=== PATIENT | male | born 1970 ===

== ENCOUNTER → 2021-01-10 02:53 | Outpatient (CLI) | payer BC, SELFPAY ==
[2021-01-10 18:23] LABS: SARS-CoV-2 RNA PCR Negative
== END ==
PROVIDERS: PCP Nurse Practitioner Gerontology; Visit Provider Family Medicine
DX: R68.89 Other general symptoms and signs (principal); Z20.822 Contact with and (suspected) exposure to COVID-19
CPT/HCPCS: C9803; U0003; U0005

== ENCOUNTER 2021-01-12 09:08 | Outpatient (CLI) | payer BC, SELFPAY ==
--- NOTE | 2021-02-02 20:16 | WPDSLEEPSTUD ---
Sleep Study Date of Study: 01/12/21 Ordering Provider: Kaye Frausto, JULISSA Interpreting Physician: Shagufta Lacey MD Sleep Study Type: Split Polysomnogram Height: 1.78 m Weight: 147.418 kg Body Mass Index: 46.6 Neck Circumference (inches): 21 Distant: 3 Reason for Sleep Study Witnessed apnea, snoring, restless sleep Sleep History Mayur Lacey is a 50 year old man with a history of snoring and restless sleep. This has been going on for several years. Many members of his family have obstructive sleep apnea. He has tried sleep medications to help him have better sleep. He had a diagnosis of obstructive sleep apnea in the , used CPAP briefly but was unable to tolerate, had his tonsils removed with improvement in symptoms however he has had 100 lb weight gain over the last few years and this has made his apnea worse. He frequently awakens from sleep feeling short of breath. He occasionally awakens at night with heartburn, belching or coughing. His snoring is frequently loud enough that others complain about it. He constantly has trouble sleeping with a cold. He frequently wakes up gasping for breath at night. He constantly has breathing problems at night observed by others. He frequently sweats excessively at night and notices his heart pounding or beating irregularly at night. He does not fall asleep during the day, does not fall asleep involuntarily or while driving. He does not have loss of muscle tone with strong emotion. He occasionally has daytime difficulties due to excessive sleepiness. He frequently feels paralyzed on waking or falling asleep. He rarely has vivid dreamlike scenes on waking or falling asleep. He rarely feels afraid to go to sleep. He occasionally has nightmares. He does not remember his dreams. He constantly has racing thoughts. He occasionally feels sad or depressed. He frequently has anxiety. He frequently has muscular tension. He occasionally notices parts of his body jerking. He constantly kicks at night. He constantly has crawling and aching feelings in his legs as well as leg pain during the night. He occasionally has jaw pain. He frequently grinds his teeth during sleep. He constantly is bothered by pain during the day. He frequently is awakened by pain during the night. He constantly wakes up feeling stiff in the morning with sore achy muscles and pain in the neck and spine. He has dizziness, fatigue, memory problems, concentration difficulties, and he takes antacids regularly. He has gained 100 lb over the last 52 years since his abdominal surgery and now is working with a staff trainer. His normal bedtime is 2:00 a.m., falls asleep 1 hour after taking his medications. He wakes up 10 times during the night to urinate, drink water, below is nose and try to become comfortable and return to sleep which takes about 15 minutes. He estimates getting 3-5 hours of sleep normally. He does not take naps in the afternoon or evening. He is drowsy after waking for 2 hours. He feels better in the evening compared to other times of day. Habits: Never smoker. caffeine 1 cup per day. No recreational drugs. [facility] Past Medical History Medical History (Updated 02/02/21 @ 20:52 by Shagufta Lacey MD) Chronic pain GERD (gastroesophageal reflux disease) Hyperglycemia Hyperlipidemia Hypertension Metabolic syndrome X Mixed anxiety and depressive disorder Obstructive sleep apnea Seasonal allergies Surgical History Surgical History (Updated 02/02/21 @ 20:28 by Shagufta Lacey MD) History of hernia repair x 5 S/P partial resection of colon due to diverticulitis 03/2020 S/P tonsillectomy 2006 Family History Family History (Updated 02/02/21 @ 20:26 by Shagufta Lacey MD) Mother Crohn's disease Other Diabetes mellitus Obstructive sleep apnea Social History Social History (Updated 02/02/21 @ 20:27 by Shagufta Lacey MD) Smoking status: Never smoker [facility]
[2021-02-02 20:22] VITALS: BMI 46.6
== END 2021-01-13 06:59 | disposition home or self-care (01) ==
LOC: ANHCSM 09:16
PROVIDERS: PCP Nurse Practitioner Gerontology; Visit Provider Nurse Practitioner Gerontology
DX: G47.33 Obstructive sleep apnea (adult) (pediatric) (principal)
CPT/HCPCS: 95811